=== PATIENT | female | born 1940 | race Caucasian/White ===

== ENCOUNTER 2017-08-18 14:56 | Emergency (ER) | payer SELFPAY, OTHER, MEDICARE | END 2017-08-18 20:44 | disposition left against medical advice (07) | LOC: E/R 14:56 | DX: Z53.21 Procedure and treatment not carried out due to patient leaving prior to being seen by health care provider (principal) ==

== ENCOUNTER 2019-01-26 10:10 | Emergency (ER) | payer MEDICARE, OTHER ==
[2019-01-26 12:05] LABS: ADD MAN DIFF? NO
[2019-01-26 12:08] LABS: BASOPHILS % 0.4 % (0.0-2.0); EOSINOPHILS # 0.2 10^3/ul (0.0-0.5); HEMOGLOBIN 12.8 g/dl (12.0-16.0); LYMPHOCYTES # 2.1 10^3/ul (0.8-2.9); LYMPHOCYTES % 27.4 % (15.0-51.0); MEAN CORPUSCULAR HEMOGLOBIN 28.7 pg (29.0-33.0); MEAN CORPUSCULAR VOLUME 89.7 fl (82.0-101.0); MEAN PLATELET VOLUME 9.5 fl (7.4-10.4); MONOCYTE # 0.5 10^3/ul (0.3-0.9); MONOCYTES % 6.1 % (0.0-11.0); NEUTROPHIL # 4.8 10^3/ul (1.6-7.5); NEUTROPHILS % 63.8 % (39.0-77.0); PLATELET COUNT 229 10^3/UL (140-415); RED BLOOD COUNT 4.46 10^6/ul (4.20-5.40); RED CELL DISTRIBUTION WIDTH 13.1 % (11.5-14.5)
[2019-01-26 12:08] LABS: WHITE BLOOD COUNT 7.5 10^3/ul (4.8-10.8)
[2019-01-26 12:24] LABS: ADD UMIC YES; UR ASCORBIC ACID NEGATIVE (NEGATIVE); UR BACTERIA FEW /HPF (NONE SEEN); UR BILIRUBIN (Dip) NEGATIVE (NEGATIVE); UR BLOOD (Dip) 1+ mg/dL (NEGATIVE); UR CLARITY CLEAR (CLEAR); UR COLOR STRAW (YELLOW); UR GLUCOSE (Dip) NEGATIVE (NEGATIVE); UR KETONES (Dip) NEGATIVE (NEGATIVE); UR LEUKOCYTE ESTERASE (Dip) NEGATIVE Leu/ul (NEGATIVE); UR NITRITE (Dip) NEGATIVE (NEGATIVE); UR RBC 0 /HPF (0-5); UR SPECIFIC GRAVITY (Dip) 1.004 (1.003-1.030); UR TOTAL PROTEIN (Dip) NEGATIVE (NEGATIVE); UR UROBILINOGEN (Dip) NEGATIVE (NEGATIVE); UR WBC 0 /HPF (0-5)
[2019-01-26 12:27] LABS: INR 0.98; PROTIME 13.1 Sec (11.9-14.9)
[2019-01-26 12:29] LABS: PARTIAL THROMBOPLASTIN TIME 30.6 Sec (23.0-35.0)
[2019-01-26 12:34] LABS: ALANINE AMINOTRANSFERASE 21 IU/L (13-69); ALBUMIN 4.3 g/dl (3.3-4.9); ALBUMIN/GLOBULIN RATIO 1.04; ALKALINE PHOSPHATASE 119 IU/L (42-121); AMYLASE 96 U/L (11-123); ANION GAP 9 (5-13); ASPARTATE AMINO TRANSFERASE 30 IU/L (15-46); BILIRUBIN,INDIRECT 0.5 mg/dl (0-1.1); BILIRUBIN,TOTAL 0.5 mg/dl (0.2-1.3); BLOOD UREA NITROGEN 20 mg/dl (7-20); CALCIUM 9.4 mg/dl (8.4-10.2); CARBON DIOXIDE 25 mmol/L (21-31); CHLORIDE 106 mmol/L (97-110); CREATININE 0.65 mg/dl (0.44-1.00); GLUCOSE 96 mg/dl (70-220); LIPASE 83 U/L (23-300); POTASSIUM 4.1 mmol/L (3.5-5.1); SODIUM 140 mmol/L (135-144); TOTAL PROTEIN 8.4 g/dl (6.1-8.1)
[2019-01-26 12:44] LABS: TROPONIN-I < 0.012 ng/ml (0.000-0.120)
[2019-01-26] MEDS: SOD CHLORIDE 0.9% 1,000 ML IV (12:46)
[2019-01-26] MEDS: ONDANSETRON 4 MG INJ IV (12:47)
[2019-01-26] MEDS: morphine 4 MG/ML VIAL IV (12:47)
[2019-01-26] MEDS: CIPROFLOXACIN 400MG/D5W 200 ML IVPB (14:21)
== END 2019-01-26 15:37 | disposition home or self-care (01) ==
LOC: E/R 10:10
DX: K57.30 Diverticulosis of large intestine without perforation or abscess without bleeding (principal); N30.00 Acute cystitis without hematuria; Z79.82 Long term (current) use of aspirin
CPT/HCPCS: 74176; 80053; 81001; 82150; 83690; 84484; 85025; 85610; 85730; 87086; 93005; 96374; 96375; 99285-25